=== PATIENT | female | born 1995 | race African-American/Black ===

== ENCOUNTER 2018-12-19 04:10 | Emergency (ER) | payer MEDICAID, OTHER ==
[~2018-12-19] VITALS: Ht 149.9 cm; Wt 61.8 kg
[~2018-12-19 04:10] MED LIST: PREN1TAB80 PO
[2018-12-19] MEDS ORDERED: ACETAMINOPHEN 325 MG TABLET PO ONE (05:00)
[2018-12-19 05:49] VITALS: BP 116/71
== END 2018-12-19 06:27 | disposition home or self-care (01) ==
LOC: EMS 04:10
DX: S00.531A Contusion of lip, initial encounter (principal); Y04.2XXA Assault by strike against or bumped into by another person, initial encounter; Y93.01 Activity, walking, marching and hiking; Y92.89 Other specified places as the place of occurrence of the external cause; Y99.8 Other external cause status

== ENCOUNTER 2021-02-05 18:27 | Emergency (ER) | payer OTHER ==
[~2021-02-05] VITALS: Ht 149.9 cm; Wt 72.7 kg
[2021-02-05 21:00] VITALS: BP 121/79
== END 2021-02-05 21:30 | disposition home or self-care (01) ==
LOC: EMS 18:27
DX: U07.1 COVID-19 (principal)
CPT/HCPCS: 99283; U0003